=== PATIENT | male | born 1950 | race Caucasian/White ===

== ENCOUNTER 2018-10-05 16:01 | Day surgery (SDC) | payer BC, MEDICARE ==
[~2018-10-05] VITALS: Ht 193 cm; Wt 122.7 kg
[~2018-10-05 16:01] MED LIST: BYST20TA2 PO; EPLE50TA PO; HYDR12.55 PO; IRBE300T10 PO; LEVO112T2 PO; LIDOCAINE 1% MDV 20ML VIAL SQ PRN; XARE20TA PO
[2018-10-05] MEDS ORDERED: LR 1,000 ML IV ONE (16:15)
--- NOTE | 2018-10-05 16:37 | ECGEPIP ---
Test Date: 2018-10-05 Pat Name: PARKER ELAM Department: Room: - Gender: Male Adult Protective Caseworker: : 1950 Requested By: Norman Avalos Order Number: [id number] Reading MD: Valerie Dean Measurements Intervals [place] Rate: 93 P: OR: -1 QRS: QRSD: 81 T: 30 QT: 381 QTc: 475 Interpretive Statements ATRIAL FLUTTER/TACHYCARDIA WITH ABERRANT CONDUCTION OR VENTRICULAR PREMATURE COMPLEXES INFERIOR MYOCARDIAL INFARCTION, OF INDETERMINATE AGE Electronically Signed on 10-05-2018 16:37:34 EDT by Valerie Dean
[2018-10-05] MEDS ORDERED: PROPOFOL 200 MG/20 ML VIAL As Ordered ONE (17:02)
[2018-10-05] MEDS ORDERED: LIDOCAINE 2% INJ 100 MG/5 ML SDV (FOR ANES.) As Ordered ONE (17:02)
[2018-10-05] MEDS ORDERED: LR 1,000 ML IV SCH (17:45)
[2018-10-05 18:30] VITALS: BP 136/84
--- NOTE | 2018-10-05 21:06 | RO ---
DATE OF PROCEDURE: 10/05/2018 INDICATION: Atrial fibrillation. PREOPERATIVE DIAGNOSIS: POSTOPERATIVE DIAGNOSIS: PROCEDURE: Direct current (DC) cardioversion. SURGEON: Dr. Norman Avalos TARIFF CLERK: ANESTHESIA: ANESTHESIOLOGY PROVIDED BY: Ms. 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 He relapsed in late July 2018. I saw him in the office, and we decided to proceed with DC cardioversion. He has been chronically anticoagulated and the rate was well controlled. He did sign appropriate consent on an outpatient basis. DESCRIPTION OF PROCEDURE: The patient was brought to the post-anesthesia care unit (PACU) in fasting condition, appropriate time-out was taken. Patches were applied in the usual fashion. After appropriate level of sedation was accomplished, he was cardioverted with 150 joules of energy in biphasic mode. Single shock led to hinduism of sinus rhythm without post conversion pause. There were no immediate complications, and the patient tolerated the procedure well. 12-lead ECG postprocedure demonstrated resumption of sinus rhythm. CONCLUSION: Successful cardioversion of atrial fibrillation into sinus rhythm. PLAN: The patient will resume his preadmission medications. The only change will be reduction of Synthroid from 200 mcg daily to 150 mcg daily. I will see him tentatively in followup this Friday.
--- NOTE | 2018-10-06 07:33 | ECGEPIP ---
[facility] Test Date: 2018-10-05 Pat Name: PARKER ELAM Department: Room: - Gender: Male International Trade Manager: : 1950 Requested By: Norman Avalos Order Number: [id number] Reading MD: Valerie Dean Measurements Intervals [place] Rate: 64 P: 45 [place]: 216 QRS: QRSD: 82 T: 30 QT: 439 QTc: 456 Interpretive Statements SINUS RHYTHM WITH FIRST DEGREE AV BLOCK FIRST DEGREE BLOCK NEW PACS AND PVCS ABSENT oLD iwmi NOT SEEN C/W 10/05/18 Electronically Signed on 10-06-2018 7:32:48 EDT by Valerie Dean
== END 2018-10-05 18:30 | disposition home or self-care (01) ==
LOC: M SDC 16:01
PROVIDERS: ATTEND Internal Medicine Cardiovascular Disease
DX: I48.0 Paroxysmal atrial fibrillation (principal); I10 Essential (primary) hypertension; E03.9 Hypothyroidism, unspecified; G47.30 Sleep apnea, unspecified; Z79.01 Long term (current) use of anticoagulants; Z79.899 Other long term (current) drug therapy

== ENCOUNTER → 2021-05-14 | Outpatient (CLI) | payer MEDICARE ==
[~2021-05-14] MED LIST changes: -IRBE300T10 PO; +IRBE300T7 PO; -LIDOCAINE 1% MDV 20ML VIAL SQ PRN
[2021-05-14 14:54] LABS: BASO % 0.5 % (0.0-1.0); EOS # 0.3 10^3/uL (0.0-0.5); EOS % 3.2 % (0.0-3.0); HEMATOCRIT 36.8 % (42.0-52.0); HEMOGLOBIN 12.6 g/dl (13.5-17.5); LYMPH # 1.8 10^3/uL (1.5-5.0); LYMPH % 20.9 % (24.0-44.0); MEAN CORPUSCULAR HEMOGLOBIN 35.5 pg (27.0-33.0); MEAN CORPUSCULAR HGB CONC 34.2 g/dl (32.0-36.5); MEAN CORPUSCULAR VOLUME 103.7 fl (80.0-96.0); MONO # 0.9 10^3/uL (0.0-0.8); MONO % 10.9 % (2.0-8.0); NEUTROPHILS # 5.4 10^3/uL (1.5-8.5); NEUTROPHILS % 63.9 % (36.0-66.0); PLATELET COUNT, AUTOMATED 202 10^3/uL (150-450); RED BLOOD COUNT 3.55 10^6/uL (4.30-6.10); WHITE BLOOD COUNT 8.5 10^3/uL (4.0-10.0)
[2021-05-14 15:19] LABS: ALBUMIN 3.4 GM/DL (3.2-5.2); ALT/SGPT 32 U/L (12-78); BILIRUBIN,TOTAL 0.7 MG/DL (0.2-1.0); BLOOD UREA NITROGEN 19 MG/DL (7-18); CALCIUM LEVEL 8.6 MG/DL (8.8-10.2); CARBON DIOXIDE LEVEL 29 MEQ/L (21-32); CHLORIDE LEVEL 105 MEQ/L (98-107); CREATININE FOR GFR 1.23 MG/DL (0.70-1.30); GLOMERULAR FILTRATION RATE > 60.0 (>42); GLUCOSE, FASTING 93 MG/DL (70-100); POTASSIUM SERUM 3.6 MEQ/L (3.5-5.1); SODIUM LEVEL 141 MEQ/L (136-145); TOTAL PROTEIN 6.5 GM/DL (6.4-8.2)
== END ==
LOC: M EKG 14:09
PROVIDERS: ATTEND Family Medicine
DX: Z01.818 Encounter for other preprocedural examination (principal); R94.31 Abnormal electrocardiogram [ECG] [EKG]

== ENCOUNTER → 2022-12-02 | Outpatient (REF) | payer MEDICARE ==
[2022-12-02 11:41] LABS: APPEARANCE, URINE HAZY (CLEAR); BACTERIA, URINE AUTO 1+ (NEGATIVE); BILIRUBIN, URINE AUTO NEGATIVE (NEGATIVE); BLOOD, URINE BLOOD NEGATIVE (NEGATIVE); COLOR, URINE YELLOW (YELLOW); GLUCOSE, URINE (UA) AUTO NEGATIVE (NEGATIVE); KETONE, URINE AUTO NEGATIVE (NEGATIVE); LEUKOCYTE ESTERASE, URINE AUTO 1+ (NEGATIVE); NITRITE, URINE AUTO NEGATIVE (NEGATIVE); PROTEIN, URINE AUTO NEGATIVE (NEGATIVE); RBC, URINE AUTO 5 /HPF (0-3); SPECIFIC GRAVITY URINE AUTO 1.015 (1.002-1.035); SQUAMOUS EPITHELIAL CELL UR AU 1 /HPF (0-6); UROBILINOGEN, URINE AUTO 0.2 mg/dL (0.0-2.0); WBC, URINE AUTO 6 /HPF (0-3)
== END ==
LOC: M LAB REF 11:05
PROVIDERS: ATTEND Urology
DX: N52.01 Erectile dysfunction due to arterial insufficiency (principal)

== ENCOUNTER 2024-04-13 06:11 | Day surgery (SDC) | payer MEDICARE ==
[~2024-04-13] VITALS: Ht 190.5 cm; Wt 101.5 kg
[~2024-04-13 06:11] MED LIST changes: +BYST1TAB PO; -BYST20TA2 PO; -EPLE50TA PO; +EPLE50TA12 PO; +IRBE300T25 PO; -IRBE300T7 PO; +SYNT175T2 PO
[2024-04-13] MEDS ORDERED: NS (Normal Saline) 0.9% 1,000 ML IV SCH (06:30)
[2024-04-13] MEDS ORDERED: propofoL 200 MG/20 ML VIAL As Ordered ONE (06:53)
[2024-04-13] MEDS ORDERED: LIDOCAINE 2% 100MG/5ML SDV (FOR ANES.) As Ordered ONE (06:53)
[2024-04-13 07:59] VITALS: BP 115/97; TEMP 96.9; O2SAT 98
== END 2024-04-13 08:28 | disposition home or self-care (01) ==
LOC: M SDC 06:11
PROVIDERS: ATTEND Internal Medicine Cardiovascular Disease
DX: I48.91 Unspecified atrial fibrillation (principal); Z79.899 Other long term (current) drug therapy